=== PATIENT | female | born 1975 | race African-American/Black ===

== ENCOUNTER 2016-12-25 03:59 | Inpatient (IN) | payer OTHER ==
--- NOTE | ~2016-12-25 | DS ---
Unit #: [id number] #: [id number] Patient: SHWETA OSCAR [id number] [place] [address] [id number] MR#: [id number] NAME: SHWETA OSCAR. ROOM: P212 Age: 41 Sex: F Admission Date: 12/25/2016 : 1975 Discharge Date: 12/29/2016 Attending Physician: Todd Kirk M.D. Primary Care Physician: Primary Care Physician No DISCHARGE SUMMARY REASON FOR ADMISSION Depression with suicidal ideation. DIAGNOSTIC STUDIES PERTINENT LABORATORY DATA: The patient had routine blood work that included a CMP that was well within normal parameters, a beta HCG that was negative, a CBC that was also well within normal parameters. Tox screen is positive for benzos and cocaine. Urinalysis that showed only 0.2 urobilinogen, otherwise negative. HOSPITAL COURSE The patient was admitted for safety and stabilization for ongoing issues with major depression as well as history of cocaine abuse and alcohol abuse. The patient had been prior to this started on Paxil for the depression and her mood, and it was titrated to 40 mg daily which she tolerated and had a positive response. She also was placed on trazodone. It was titrated up to 200 mg to help with sleep and residual mood issues. Both of these medication changes were tolerated well, it could benefit. The patient is further isolative to herself most of the hospitalization, but as for the most part pleasant and cooperative with interactions. No acting out or behavioral issue. At the time of discharge, he was denying any SI or HI. She was denying any acute withdrawal issues, and she was focused on discharge home with followup in [facility] IOP Program. The patient also was seen by nurse practitioner for evaluation of pain needs and was put on Relafen 500 mg twice a day as a nonnarcotic alternative which she tolerated well. At the time of discharge, the patient was felt to reach maximum benefit from admission. There was no active SI or HI. Her mood was improved, and tolerance to medications was in place. DISCHARGE DIAGNOSES 1. Major depressive disorder, recurrent, severe without psychotic features. 2. Cocaine dependence. 3. Alcohol abuse. 4. Hip pain. DISCHARGE PLAN For the patient to follow up with [facility] intensive outpatient program as well as with her primary care doctor and to go home by way of family and/or friends. DISCHARGE MEDICATIONS 1. Paxil 40 mg daily by mouth for depression and anxiety. 2. Trazodone 200 mg at bedtime for sleep and mood. Unit #: [id number] #: [id number] Patient: SHWETA OSCAR 3. Relafen 500 mg twice a day for hip pain. DISCHARGE PROGNOSIS Guarded given the patient's history of multiple relapse (1) __ substances and poor follow-through and compliance. DISCHARGE DIET Regular. DISCHARGE ACTIVITY As tolerated with sobriety encouraged. Dictated by... Todd Kirk M.D. RADHA/donita TD: 12/29/2016 10:06 JOB #: [id number] DISCHARGE SUMMARY Page 1 of 1 X Todd Kirk MD X DISCHARGE SUMMARY
--- NOTE | ~2016-12-25 | HP ---
Unit #: [id number] #: [id number] Patient: SHWETA OSCAR [id number] [place] [address] [id number] MR#: [id number] NAME: SHWETA OSCAR. ROOM: P211 Age: 41 Sex: F Admission Date: 12/25/2016 : 1975 Attending Physician: Todd Kirk M.D. Admitting Physician: Todd Kirk M.D. Primary Care Physician: Primary Care Physician No HISTORY AND PHYSICAL HISTORY OF PRESENT ILLNESS Shweta is a 41 year old admitted to [address] [place] [address] because of her polysubstance abuse which includes cocaine and alcohol. PAST MEDICAL HISTORY 1. Long history of illicit substance abuse to include IV drugs. 2. Long history of alcohol abuse. 3. Degenerative disc disease. a. Chronic back pain. PAST SURGICAL HISTORY 1. Cholecystectomy. 2. Tubal ligation. 3. T & A. ALLERGIES No known drug allergies. SOCIAL HISTORY Smokes one pack per day. Drinks at least a six pack of beer on a daily basis and admits to a history of illicit drug use to include most recently cocaine. FAMILY HISTORY Medically noncontributory. REVIEW OF SYSTEMS CONSTITUTIONAL: No fever or chills. HEENT: Denies any sore throat, ear pain or runny nose. CARDIOVASCULAR: Denies chest pain, irregular heart rhythm or palpitations. CHEST: Denies shortness of breath or cough. No hemoptysis. GASTROINTESTINAL: Denies nausea, vomiting, diarrhea or chronic constipation. ENDOCRINE: Denies history of increased thirst or urination. No recent significant weight loss or gain. GENITOURINARY: Denies dysuria, frequency, or hematuria. SKIN: Denies any rashes. HEMATOLOGIC: Denies history of increased bleeding or bruising. MUSCULOSKELETAL: Denies any hot, swollen joints. No generalized muscle pain. NEUROLOGIC: Denies problems with vision or speech. No frequent, severe headaches. No numbness, tingling or weakness in any extremities. Denies Unit #: [id number] #: [id number] Patient: SHWETA OSCAR loss of bladder or bowel control. CURRENT MEDICATIONS 1. Detox protocol 2. Desyrel 100 mg q.h.s. 3. Paxil 20 mg q day PHYSICAL EXAMINATION GENERAL: Alert, well-nourished, in no apparent distress. VITAL SIGNS: Blood pressure 110/78, heart rate 74, respirations 16, temperature 98.6. WEIGHT: 170 pounds. HEIGHT: 5'7". SKIN: Warm and dry without rash or lesion. HEENT: Normocephalic. TMs not viewed. Oral and nasal passages clear. Conjunctivae clear. Pupils equal, round and reactive to light and accommodation. Extraocular movements intact. NECK: Supple without lymphadenopathy or thyromegaly. HEART: Regular rate and rhythm without murmur. LUNGS: Clear. ABDOMEN: Soft, nontender. : Not done. EXTREMITIES: No evidence of cyanosis, clubbing or edema. Moves all extremities without focal deficit. NEUROLOGICAL: Grossly within normal limits. Cranial Nerves: II: Visual celaya are intact. III, IV AND : Extraocular movements are intact. Pupils are equal, round and reactive to light. V: Facial sensation is grossly normal. VII: Facial movements and expression are normal. VIII: Auditory acuity grossly intact. IX, X: Uvula is midline. Phonation is normal. XI: Patient shrugs shoulders and turns head normally. XII: Tongue protrudes in the midline. Sensory and Motor Function: Sensory and motor sensation is grossly normal. Motor: moves all extremities well. Coordination: Gait is normal. Deep Tendon Reflexes: Intact. IMPRESSION 1. Psychiatric admission. 2. Degenerative disc disease. She complains of chronic back pain but denies any numbness, tingling or weakness. RECOMMENDATIONS PSYCHIATRIC: Per psychiatrist. MEDICAL: 1. I see no contraindications to participating in facility's activities. 2. Start Relafen 500 mg one p.o. b.i.d. MEDICAL PROGNOSIS Good. MEDICAL CONDITION Stable. Unit #: [id number] #: [id number] Patient: CELESTINASHWETA Janelle Dictated by... Julissa Soto P.A.-C. for Laura Patel/ethan TD: 12/26/2016 02:29 JOB #: [id number] HISTORY AND PHYSICAL Page 1 of 1 X Julissa Soto X HISTORY AND PHYSICAL
--- NOTE | ~2016-12-25 | PN ---
Unit #: [id number] #: [id number] Patient: SHWETA OSCAR [id number] [facility] [address] [place] [address] [id number] MR#: [id number] NAME: SHWETA OSCAR. ROOM: P212 Age: 41 Sex: F Admission Date: 12/25/2016 : 1975 Attending Physician: Todd Kirk M.D. Admitting Physician: Todd Kirk M.D. Primary Care Physician: Primary Care Physician Maggie ALLEN PROGRESS NOTES DATE December 27, 2016 DISCUSSION SUBJECTIVE UPDATE This is a 41-year-old female, who is here with ongoing issues of significant depression with SI. The patient continues to report poor mood issues, still hopeless, helpless, with positive SI. She is still complaining of sleep issues despite medication changes. The patient is also complaining of profound constipation and she hadn't had a bowel movement in two days. The patient also seemed to be fairly isolative to room per report. The patient educated about the need for staying up and active and social during the daytime to help limit her sleep issues at night. She complained of feeling fatigued because she is not sleeping well which makes it difficult. MENTAL STATUS EXAMINATION General appearance is a limitedly groomed female, fairly cooperative, responsive to interview process. Speech was clear and coherent with limited paucity. Mood is depressed with a blunted affect. Thought process and content were fairly organized and linear. No overt evidence of psychosis, positive for SI still with hopelessness but no HI. The patient's memory was generally intact. Associations were normal. Cognitive functioning was at baseline. She is alert and oriented x4. Insight and judgment is limited. RECOMMENDATIONS We will continue the patient's admission for safety and stabilization for ongoing issues with depression as well as other sleep disturbances and related symptoms. Will increase trazodone to 200 mg at night to help with sleep and increase Paxil 40 mg to better address depression as the patient is tolerating it thus far. The patient was educated about the changes and possibly side effects. She was in agreement. The patient also will be provided with mag citrate per request given her constipation. Staff were made aware of changes and orders given. We will continue to monitor regularly for followup care. Dictated by... Laura Garrido/dayan Unit #: [id number] #: [id number] Patient: SHWETA OSCAR Janelle TD: 12/27/2016 11:03 JOB #: [id number] [facility] PROGRESS NOTES Page 1 of 1 X Todd Kirk MD X PROGRESS NOTE
--- NOTE | ~2016-12-25 | PN ---
Unit #: [id number] #: [id number] Patient: SHWETA OSCAR [id number] [place] [address] [id number] MR#: [id number] NAME: SHWETA OSCAR. ROOM: P211 Age: 41 Sex: F Admission Date: 12/25/2016 : 1975 Attending Physician: Todd Kirk M.D. Admitting Physician: Todd Kirk M.D. Primary Care Physician: No Primary Care Physician [facility] PROGRESS NOTES DATE 12/26/2016 LOCATION [facility], [address] [place] [address], room number 211, bed #1. SUBJECTIVE UPDATE This is a 41-year-old -[place] female here with issues of significant depression, suicidal ideation who reports mood is still doing very poorly, depressed, hopeless, some mild anxiety. Sleep was better today with the addition of Trazodone. Patient reports no desire to harm herself but does still feel hopeless with some vague SI present. Overall, patient tolerating the Paxil with no overt side effects but has noticed that her appetite is spiked today, especially given her clearance from cocaine over the last 24 hours. Staff reports no acting out or behavior problems for patient. Seem fairly isolative to self. MENTAL STATUS EXAM GENERAL APPEARANCE: This is a limitedly groomed -[place] female, fairly pleasant, cooperative and responsive with improved eye contact today. Speech was clear and coherent. No prosody. Mood is depressed with a blunted affect. Thought process and content are grossly organized and linear. No overt evidence of psychosis. Vague SI but no clear plan or intent today. No HI. Patient's memory was grossly intact. Associations were normal. Cognitive functioning was at baseline. He was alert and oriented x4. Insight and judgment is improving slowly. RECOMMENDATIONS Will continue patient's admission for safety and stabilization. Patient tolerating new changes with medications. Mood is slowly improving. Will continue to monitor for any additional issues for there to be any kind of withdrawal from substances. However, the patient's presentation appears fairly typical for her previous admissions and will monitor accordingly with care ongoing. Dictated by... Todd Kirk M.D. SB/ganesh Unit #: [id number] #: [id number] Patient: MARICRUZ OSCARYOEL Luis TD: 12/26/2016 12:23 JOB #: [id number] [facility] PROGRESS NOTES Page 1 of 1 X Todd Kirk MD PROGRESS NOTE
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
--- NOTE | ~2016-12-25 | PN ---
Unit #: [id number] #: [id number] Patient: SHWETA OSCAR [id number] [facility] [address] [place] [address] [id number] MR#: [id number] NAME: SHWETA OSCAR. ROOM: P212 Age: 41 Sex: F Admission Date: 12/25/2016 : 1975 Attending Physician: Todd Kirk M.D. Admitting Physician: Todd Kirk M.D. Primary Care Physician: Primary Care Physician Maggie ALLEN PROGRESS NOTES DATE 12/28/2016 SUBJECTIVE UPDATE This is a 41-year-old female with ongoing issues of significant depression, history of substance abuse. Patient continued to report depression with vague SI, sleep disturbance even despite medication changes. Still isolative to self, limited cooperation with groups and activities. Patient tolerating med changes as Paxil was just increased but still not seeing as profound a benefit yet as should. Will continue to monitor and has been angelique for safety. MENTAL STATUS EXAMINATION General appearance, moderately groomed female fairly pleasant and cooperative, responsive to interview process with improving eye contact. Speech is clear and coherent, normal prosody. Mood is depressed but less compared to earlier with a blunted affect. Thought process and content are grossly organized, linear. No overt evidence of psychosis. Vague SI, no clear plan or intent at this time. Patient's memory was grossly intact. Associations were normal. Cognitive functioning was at baseline. Alert and oriented times four. Insight and judgement is improving but still limited. RECOMMENDATIONS Will continue patient's admission for safety and stabilization for ongoing issues with depression and suicidal ideation. Overall, patient is showing progress and improvement and increase in medications is being tolerated but needs more time for stabilization. Most likely look for possible disposition in the next 48 to 72 hours depending on the patient's progress able to be maintained with follow up care on outpatient basis. We will monitor for additional changes on a day to day basis. Dictated by... Laura Garrido/noreen TD: 12/28/2016 17:40 JOB #: [id number] Unit #: [id number] #: [id number] Patient: SHWETA OSCAR PROGRESS NOTES Page 1 of 1 X Todd Kirk MD PROGRESS NOTE
--- NOTE | ~2016-12-25 | CO ---
Unit #: [id number] #: [id number] Patient: SHWETA OSCAR [id number] [place] [address] [id number] MR#: [id number] NAME: SHWETA OSCAR. ROOM: P212 Age: 41 Sex: F Admission Date: 12/25/2016 : 1975 Attending Physician: Todd Kirk M.D. Primary Care Physician: Primary Care Physician No Consultation Date: 12/25/2016 CONSULTATION REPORT SUBJECTIVE Shweta is a 41-year-old with degenerative disk disease and who complains of chronic back pain. This was outlined and addressed under her admission H and P dated 12/25/2016. Please see H and P dated 12/25/2016. Dictated by... Julissa Soto P.A.-C. for Laura Patel/jhonny TD: 12/27/2016 01:21 JOB #: [id number] CONSULTATION REPORT Page 1 of 1 X Julissa Soto CONSULTATION REPORT
[2016-12-26 09:46] LABS: BASOPHIL% 0.3 % (0-2.5); EOSINOPHIL# 0.1 X10e3 (0-0.7); EOSINOPHIL% 1.6 % (0.0-7.0); HEMATOCRIT 40.7 % (35.0-45.0); HEMOGLOBIN 13.3 gm/dL (12.0-16.0); LYMPHOCYTE# 1.9 X10e3 (1.0-3.5); LYMPHOCYTE% 27.5 % (17.0-45.0); MEAN CORPUSCULAR HEMOGLOBIN 30.7 PG (28-34); MEAN CORPUSCULAR HGB CONC 32.7 g/dL (30-36); MEAN PLATELET VOLUME 7.8 FL (6.5-11.5); MONOCYTE# 0.7 X10e3 (0-1.0); MONOCYTE% 9.9 % (3.0-12.0); NEUTROPHIL# 4.2 X10e3 (1.5-7.1); NEUTROPHIL% 60.7 % (40-75); PLATELET COUNT 254 X10e3 (140-420); RED BLOOD COUNT 4.32 X10e (3.90-5.30); RED CELL DISTRIBUTION WIDTH 13.5 % (11.0-15.5); WHITE BLOOD COUNT 6.9 X10e3 (4.0-10.5)
[2016-12-26 09:48] LABS: DIFF IND NO
[2016-12-26 10:32] LABS: ALBUMIN SERUM 3.7 g/dL (3.5-5.0); BILIRUBIN,TOTAL 0.3 mg/dL (0.2-2.0); BUN/CREATININE RATIO 11.25; CREATININE SERUM 0.8 mg/dL (0.6-1.4); GLOM FILT RATE Estimated 107.7 mL/min (>60); POTASSIUM 4.1 mmol/L (3.5-5.1); PROTEIN TOTAL SERUM 6.6 g/dL (6.0-8.3)
[2016-12-27 09:41] LABS: URINE APPEARANCE CLEAR; URINE BILIRUBIN NEG (NEG); URINE BLOOD NEG (NEG); URINE COLOR DK YELLOW; URINE GLUCOSE NEG (NEG); URINE KETONE NEG (NEG); URINE LEUKOCYTE ESTERASE NEG (NEG); URINE NITRATE NEG (NEG); URINE PH 5.5 (5-8); URINE PROTEIN NEG (NEG); URINE SPECIFIC GRAVITY 1.024 (1.003-1.035); URINE UROBILINOGEN 0.2 MG/DL (NEG)
[2016-12-27 10:37] LABS: AMPHETAMINE NEG (NEG); BARBITURATES NEG (NEG); BENZODIAZEPINES POS (NEG); COCAINE POS (NEG); MARIJUANA NEG (NEG); OPIATES NEG (NEG); TRICYCLIC ANTIDEPRESSANTS NEG (NEG); U METHADONE NEG (NEG)
== END 2016-12-29 12:35 | disposition home or self-care (01) | DRG 885 ==
LOC: P2S 03:59
PROVIDERS: Psychiatry & Neurology Psychiatry
DX: F33.2 Major depressive disorder, recurrent severe without psychotic features (principal); F14.20 Cocaine dependence, uncomplicated; R45.851 Suicidal ideations; F10.10 Alcohol abuse, uncomplicated; F17.210 Nicotine dependence, cigarettes, uncomplicated; G89.29 Other chronic pain; F41.9 Anxiety disorder, unspecified; M25.559 Pain in unspecified hip
CPT/HCPCS: 80053; 80307; 81003; 84703; 85025; 86592